=== PATIENT | male | born 1985 | race Caucasian/White ===

== ENCOUNTER 2019-03-27 06:34 | Outpatient (CLI) | payer BC, SELFPAY ==
--- NOTE | 2019-03-27 07:30 | NEURO_ITS ---
TEST: ELECTROENCEPHALOGRAM DIAGNOSIS: UNSPECIFIED CONVULSIONS PATIENT NUMBER: [id number] EEG NUMBER: [id number] RECORDING DATE: 03/27/19 CONDITION OF RECORDING: Awake, drowsy and sleep EEG DESCRIPTION: Basic resting occipital frequency consists moderate amount of well organized low to medium voltage 8-10hz alpha mixed with minimal amount of low voltage 15-18hz beta. During drowsiness low voltage beta activity is seen diffusely mixed with waxing and waning posterior alpha rhythms. Bilateral symmetrical sleep activity is seen during sleep. Regular EKG artifacts are noted. Bi-hemispheric sharp and slow wave transients are seen intermittently during wakefulness and drowsiness with questionable left hemispheric dominance. Photic stimulation produced normal drive. Hyperventilation produced normal and symmetrical build-up. Paroxysmal. Focal. Lateralizing. IMPRESSION: Abnormal record due to the presence of sharp and slow wave activity with possible left hemispheric dominance. These abnormalities are consistent with the diagnosis of seizure disorder. Clinical correlation recommended. [facility]
== END 2019-03-27 06:35 | disposition home or self-care (01) ==
PROVIDERS: PCP Family Medicine; Visit Provider Family Medicine
DX: R56.9 Unspecified convulsions (principal); R94.01 Abnormal electroencephalogram [EEG]
CPT/HCPCS: 95816

== ENCOUNTER 2019-06-02 10:28 | Outpatient (CLI) | payer BC, SELFPAY ==
--- NOTE | ~2019-06-02 | MR_ITS ---
EXAMINATION: MR brain/brain stem wo/w con EXAM DATE: 06/02/2019 11:41 INDICATION: Seizure. TECHNIQUE: Magnetic resonance imaging (MRI) of the brain/brain stem obtained without contrast. Sagit helen T1, axial diffusion, gradient echo (T2*), T1, T2, FLAIR sequences obtained. Seizure protocol was utilized including high-resolution coronal images through the hippocampi. Patient was then injecte d with 20 cc intravenous Multihance contrast. Axial and coronal postcontrast T1 weighted sequences ob tained. There is no prior study for comparison. FINDINGS: The hippocampi are symmetric and are without signal abnormality identified. There are no g ray matter heterotopias identified or evidence of cortical dysplasia. There are no areas of restrict ed diffusion to suggest acute infarction. There is no acute hemorrhage seen on the T2*, a hemosideri n sensitive sequence. No intraparenchymal brain mass. The ventricles are normal in size. There are no extra-axial collections. Flow voids are seen in the cerebral arteries on the T2-weighted sequence s consistent with their expected patency. The orbits are unremarkable. Soft tissue is unremarkable. There are no areas of abnormal enhancement on the postcontrast images. Mild to moderate mucoperios teal thickening. IMPRESSION: 1. No acute intracranial findings. 2. Mild to moderate ethmoid and maxillary mucoperiosteal thickening. Reviewed, dictated and finalized at location B.
[2019-06-02 11:02] LABS: Estimated Glomerular Filt Rate > 60
== END 2019-06-02 10:29 | disposition home or self-care (01) ==
PROVIDERS: PCP Family Medicine; Visit Provider Psychiatry & Neurology Neurology
DX: R56.9 Unspecified convulsions (principal)
CPT/HCPCS: 36415; 70553; A9577

== ENCOUNTER → 2020-12-17 07:32 | Outpatient (CLI) | payer BC, SELFPAY ==
--- NOTE | ~2020-12-17 | US_ITS ---
US abdomen limited DATE: 12/17/2020 07:55 INDICATION: Epigastric abdominal pain TECHNIQUE: Real-time imaging of liver, pancreas, gallbladder COMPARISON: None FINDINGS: There is hepatic steatosis. No hepatic or pancreatic space-occupying mass lesion is evident . Normal hepatopedal portal venous flow direction. There were multiple filling defects of the gallbladder with associated acoustical shadowing, consiste nt with cholelithiasis. No gallbladder wall thickening is noted. The common bile duct measures 5 mm, normal. Negative sonographic Lanza's sign with the patient reportedly is taking pain medication, which limit s the sensitivity of this time. IMPRESSION: Cholelithiasis Hepatic steatosis Reviewed, dictated and finalized at Location A. Reviewed, dictated and finalized at location A.
== END ==
PROVIDERS: Visit Provider Physician Assistant
DX: R10.13 Epigastric pain (principal); K80.20 Calculus of gallbladder without cholecystitis without obstruction; K76.0 Fatty (change of) liver, not elsewhere classified
CPT/HCPCS: 76705

== ENCOUNTER 2021-02-23 14:58 | Outpatient (CLI) | payer BC, SELFPAY ==
[2021-02-23 15:48] LABS: Alanine Aminotransferase 73 U/L (4-50); Albumin Level 4.4 g/dL (3.5-5.1); Alkaline Phosphatase 75 U/L (38-126); Amylase 67 U/L (30-110); Aspartate Amino Transferase 44 U/L (17-59); Bilirubin,Total 0.4 mg/dL (0.2-1.3); Lipase 54 U/L (23-300)
== END 2021-02-23 14:59 | disposition home or self-care (01) ==
LOC: ANHSURGERY 15:02
PROVIDERS: PCP Family Medicine; Visit Provider Surgery
DX: K80.20 Calculus of gallbladder without cholecystitis without obstruction (principal)
CPT/HCPCS: 36415; 80076; 82150; 83690; 86850; 86900; 86901

== ENCOUNTER → 2021-02-24 00:13 | Outpatient (CLI) | payer BC, SELFPAY ==
[2021-02-25 16:52] LABS: SARS-CoV-2 RNA PCR Negative
== END ==
PROVIDERS: PCP Family Medicine; Visit Provider Surgery
DX: Z01.812 Encounter for preprocedural laboratory examination (principal); Z20.822 Contact with and (suspected) exposure to COVID-19
CPT/HCPCS: C9803; U0003; U0005

== ENCOUNTER 2021-02-27 00:28 | Day surgery (SDC) | payer BC, SELFPAY ==
[2021-02-15 14:18] VITALS: BMI 35.6
--- NOTE | 2021-02-15 14:28 | PC.NURSE ---
Report to the Outpatient Waiting Room, entrance under the green pavilion located off [facility], at time 10:00 on date 02/27/21. OR Time: 12:00. - You and your visitor will be asked a series of questions to screen for COVID 19 for your protection. - A mask is required within the hospital. - Only one visitor is allowed at this time. Patient visitors will be guided where to wait when not with patient. Preoperative COVID Testing Requirements: No COVID Test needed if: (proof is required; if not received patient will have Rapid Test prior to entry) - Patient has received COVID Vaccine at least 14 days prior to procedure date or - Patient has positive COVID test result within last 90 days of surgery date. COVID Test needed if above criteria is not met If not COVID vaccinated a COVID test must be conducted within 72 hours of surgery and patient is asked to isolate self from time of testing until procedure. You will go to the [facility] for your COVID testing. The [facility] is located at the corner of [address] [facility]. COVID TEST 02/24 AT 9:10 You will only be called if COVID results are positive and your surgeon may reschedule your elective surgery date. Patients may have clear liquids (water, carbonated beverages, clear teas, apple juice) until 3 hours prior to surgery with a maximum of 20 ounces. - No food from midnight until time of surgery - Infants may have breast milk until 4 hours before surgery, infant formula 6 hours prior to surgery. - Children will be allowed to drink immediately following surgery. If applicable, please bring a bottle or sippy cup to assist with drinking. Juice, water, soda, and popsicles are readily available. For infants on formula, please bring formula the day of surgery. Pacifiers are allowed. Take the following medications with a SIP of water the morning of surgery: LAMOTRIGINE Medications to discontinue per physician: N/A Date to take last dose: N/A Please no make-up, nail urdu, hairspray, perfume, deodorant, or body powder the day of surgery. No jewelry (including any body piercings) or valuables the day of surgery, leave them at home. Please take a shower or bath the night before, or the morning of, surgery with an antibacterial soap. Wear comfortable, loose fitting clothing. HIBICLENS SHOWER - Jewelry must be removed prior to entering the operating room. Rings and piercings that are not removed may be cut off. - The hospital will not accept responsibility for valuables. - Please leave all valuables, including medications, at home the day of surgery. If you are going home after surgery, a licensed corporate driver must drive you home. - NO public transportation without another adult. - We recommend that an adult stay with you for 24 hours following discharge. - We also recommend that you do not drive, make important decision, drink alcoholic beverages, or take any drugs that were not prescribed by your health care provider for at least 24 hours after your discharge time. For Pediatric surgeries, we recommend two adults accompany the child home (only one inside the building at this time). Follow any additional instructions given to you from your surgeon. Telephone instructions given to LORENZO KENT and asked if any additional questions and then verbalized understanding. Patient advised to call surgeon office or pre surgery nurse liaison [phone] if any additional questions.
[2021-02-27] VITALS (10 sets, daily range): BP systolic 109–140; BP diastolic 61–83; PULSE 55–79; RESP 12–20; TEMP 36.5–36.8; O2SAT 93–100
[2021-02-27] MEDS: ACETAMINOPHEN 500 MG TABLET 1000 MG PO (10:24)
--- NOTE | 2021-02-27 10:25 | WPDANESEPPF ---
Anes - Initial Pre Proc Eval Procedure: Operation Date: 02/27/21 12:00 Proposed Procedures p Laparoscopic Cholecystectomy, Possible Open - Franklin Galvan DO Date/Time: 02/27/21 10:25 Surgeon: Franklin Galvan DO Pre Op Diagnosis: symptomatic cholelithiasis Patient Data Age: 35 Gender: M Height: 1.85 m Weight: 122.47 kg Allergies Allergy/AdvReac Type Severity Reaction Status Date / Time No Known Allergies Allergy Verified 02/27/21 10:22 Home Medications Medication Instructions Recorded Confirmed Type lamotrigine 25 mg tablet 100 mg PO BID tablet 07/27/20 02/27/21 History Patient hx anesthesia problems: post op nausea/vomiting Family hx anesthesia problems: none Results Review: All pre-operative results and documents have been reviewed as part of the pre-operative evaluation. [facility] Past Medical History Medical History Exposure to hazardous chemical Intolerance to BiPAP/CPAP Seizure Seizure disorder Surgical History Surgical History History of sinus surgery Hx of LASIK Social History Social History Smoking status: Never smoker Second hand tobacco smoke exposure: No Alcohol intake: current Drinks per week: 2 Alcohol use details: socially Substance use: never Substance use type: does not use Living arrangements: with family Gender identity (if verbalized by the patient): Male Spiritual care concerns: No Anes - Eval Final PreProcedure Day of Procedure 02/27/21 10:25 Patient weight: obese Heart: regular rate and rhythm Lungs: clear to auscultation Airway: Mallampati scale class II Neurological: alert and oriented Last oral intake: >/= 8 hours ASA classification: III Emergent: no Anesthetic plan: proceed Anesthesia type and monitoring: general ETT and standard monitoring Results Review: All pre-operative results and documents have been reviewed as part of the pre-operative evaluation. Informed Consent: The patient's anesthetic plan and its attendant risks and benefits were discussed with the patient/family/POA. Questions were solicited and answers provided to the satisfaction of the patient/family/POA.
[2021-02-27] MEDS: LACTATED RINGERS 1,000 ML 30 ML IV CONT ×2 (10:50→14:15)
[2021-02-27] MEDS: KETOROLAC 15 MG/ML VIAL (*BKC) IV PUSH (10:56)
--- NOTE | 2021-02-27 11:21 | WPDHPUPDATE1 ---
History and Physical Update Update Date/Time: 02/27/21 11:21 History and Physical has been reviewed, including an updated exam of the patient. There are NO changes in the patient's condition. Risks, benefits, and alternatives have been discussed and questions answered. Patient agrees to proceed with procedure.
[2021-02-27] MEDS: ceFAZolin 3 GM/D5W 100 ML 100 ML IVPB (11:37)
[2021-02-27] MEDS: BUPIVACAINE/EPINEPHRINE 0.5% 10 ML VIAL 30 ML INFILTRATE (12:03)
--- NOTE | 2021-02-27 12:19 | SUR.OPER ---
Ebl=5ml
--- NOTE | 2021-02-27 12:23 | W.PM.PROC2 ---
Procedure Note - Detailed Date of Procedure 02/27/21 Pre-op Diagnosis symptomatic cholelithiasis Post-op Diagnosis same Procedure Performed Laparoscopic Cholecystectomy Surgeon Franklin Galvan, DO Anesthesia general and local (0.5% bupivacaine) Indications This is a 35-year-old man who has been experiencing epigastric abdominal pain off and on for the past several months. He had an ultrasound that showed evidence of cholelithiasis. Discussions were made with the patient about treatment options and decision was made to proceed with laparoscopic cholecystectomy, possible open. Findings Laparoscopic cholecystectomy was performed. The gallbladder was somewhat dilated and had a few pericholecystic adhesions. The cystic duct appeared normal in size. No other abnormalities were noted. The gallbladder was removed and sent to the lab for pathology. Description of Procedure Procedure as well as risks, benefits, and alternatives were discussed with patient. Written consent was obtained and placed in chart prior to procedure. The patient was brought back to surgical suite. Patient was placed in supine position on operating table. Time-out was done to confirm patient and procedure. Patient was then intubated by the anesthesia department. Abdomen was prepped and draped in sterile fashion using chlorhexidine prep. 0.5% bupivacaine with epinephrine was infiltrated at each site of incision. A 5 millimeter incision was made near the umbilicus, and a 5 millimeter Optiview trocar was advanced through the abdominal layers under direct visualization. Once inside the abdominal cavity, carbon dioxide was insufflated to create a pneumoperitoneum. The camera was inserted and the abdomen was inspected. No immediate abnormalities were identified. The patient was placed in reverse Trendelenburg position and rotated slightly to the left. An 11 millimeter incision was made in the subxiphoid region, and an 11 millimeter trocar was inserted under direct visualization. Two 5 millimeter incisions were made in the right upper quadrant, and two 5 millimeter trocars were inserted under direct visualization. The gallbladder was identified and grasped at the fundus and retracted superiorly. It was then grasped at the infundibulum retracted laterally. Careful dissection around the neck of the gallbladder was performed using blunt dissection with a [place] grasper and hook electrocautery. The cystic duct was identified, and a window was created behind it. The cystic artery was also identified and a window was created behind it. The critical view of safety was identified, visualizing the cystic duct running directly into the neck of the gallbladder, and the cystic artery running directly into the wall of the gallbladder. A 5 millimeter clip airplane patroller was then used to place 2 clips proximally and 1 clip distally on both the cystic duct and cystic artery. They were then both transected using endoscopic scissors. Once safely away from the ely hepatitis, the gallbladder was dissected free from the liver bed using hook electrocautery. Hemostasis was achieved along the way. The gallbladder was removed completely and then removed through the subxiphoid port. The liver bed was then inspected. Hemostasis appeared adequate, and our clips appeared secure. The area was gently irrigated with sterile saline. No other abnormalities were seen. The patient was flattened out in bed, and 1 final inspection was made around the abdominal cavity. The subxiphoid port was removed, and a Scooter Nathanael cone was used to approximate the fascia with an 0-Vicryl simple interrupted suture. The remaining ports were then removed under direct visualization, the camera was removed, and the pneumoperitoneum was released. The skin of the incisions was approximated using 4-0 Monocryl subcuticular sutures. Exofin glue was applied on top. The patient was then awakened from anesthesia, extubated, and transferred to
[2021-02-27] MEDS: fentaNYL CITRATE INJ (*CRX) 100 MCG/2 ML VIAL 25 MCG IV PUSH ×6 (13:06→13:38)
[2021-02-27] MEDS: SCOPOLAMINE 1.5 MG PATCH TRANSDERM (13:06)
[2021-02-27] MEDS: diphenhydrAMINE HCl INJ 50 MG/ML VIAL 25 MG IV PUSH (14:49)
== END 2021-02-27 15:15 | disposition home or self-care (01) ==
PROVIDERS: PCP Family Medicine; Visit Provider Surgery
PROC: 0FT44ZZ Resection of Gallbladder, Percutaneous Endoscopic Approach (ICD-10-PCS; CPT 47562; principal; 2021-02-27 12:00)
DX: K80.10 Calculus of gallbladder with chronic cholecystitis without obstruction (principal); G40.909 Epilepsy, unspecified, not intractable, without status epilepticus; E66.9 Obesity, unspecified; Z68.37 Body mass index [BMI] 37.0-37.9, adult
CPT/HCPCS: 47562; 88304; A9270; J0690; J1100; J1170; J1200; J1885; J2405; J2710; J3010; J7030; J7120

== ENCOUNTER 2023-07-04 11:40 | Outpatient (CLI) | payer BC, SELFPAY ==
--- NOTE | ~2023-07-04 | XR_ITS ---
EXAMINATION: XR hip LT 2V w AP pelvis DATE: 07/04/2023 12:51 INDICATION: Left hip pain. TECHNIQUE: An anteroposterior view of the pelvis and 2 views of left hip were obtained. COMPARISON: None. FINDINGS: Alignment is normal. There is decreased left femoral head/neck offset anterolaterally, whic h may be seen with femoral acetabular impingement. The hip joint spaces are normal. IMPRESSION: 1. No arthritis. Reviewed, dictated and finalized at location A. IMPRESSION: 1. No arthritis.
== END 2023-07-04 11:41 ==
PROVIDERS: PCP Family Medicine; Visit Provider Family Medicine
DX: M25.552 Pain in left hip (principal)
CPT/HCPCS: 73502

== ENCOUNTER 2024-05-18 08:39 | Outpatient (CLI) | payer BC, SELFPAY ==
--- NOTE | ~2024-05-18 | XR_ITS ---
XR ankle LT 2V Ordering provider: Jesu Haney MD History: . M25.572 - Pain in left ankle and joints of left foot . Comparison: None. FINDINGS: BONES: No acute fracture or dislocation. Calcaneal spur. JOINT SPACES: The ankle mortise is normal. SOFT TISSUES: Normal. IMPRESSION: No acute osseous abnormality left ankle. Reviewed, dictated and finalized at location A.
== END 2024-05-18 08:40 | disposition home or self-care (01) ==
PROVIDERS: PCP Family Medicine; Visit Provider Family Medicine
DX: M25.572 Pain in left ankle and joints of left foot (principal)
CPT/HCPCS: 73600

== ENCOUNTER 2024-06-16 12:05 | Outpatient (CLI) | payer BC, SELFPAY ==
[2024-06-16 12:42] LABS: Basophils Percent Auto 0.4 % (0.2-1.2); Eosinophils Absolute Auto 0.6 K/mm3 (0-0.3); Eosinophils Percent Auto 7.2 % (0-4.4); Hematocrit 45.4 % (42.0-52.0); Hemoglobin 15.4 g/dL (14.0-18.0); Immature Granulocyte Absolute 0.02 K/mm3 (0.00-0.031); Immature Granulocyte Percent A 0.3 % (0-0.5); Mean Corpuscular HGB Conc 33.9 g/dl (32-36); Mean Corpuscular Hemoglobin 30.1 pg (26-34); Mean Corpuscular Volume 88.8 fl (80-100); Mean Platelet Volume 10.7 fl (7.4-10.4); Monocytes Absolute Auto 0.6 K/mm3 (0.1-0.6); Monocytes Percent Auto 7.4 % (2.6-8.5); Neutrophils Absolute Auto 4.4 K/mm3 (1.3-6.7); Neutrophils Percent Auto 55.7 % (45.5-73.1); Platelet Count Result 259 k/mm3 (150-375); Red Blood Count 5.11 M/mm3 (4.6-6.20); Red Cell Distribution Width 12.4 % (11.5-14.5); White Blood Count 7.9 K/mm3 (4.5-10.0)
[2024-06-16 13:11] LABS: Alanine Aminotransferase 87 U/L (6-50); Albumin Level 4.8 g/dL (3.5-5.1); Alkaline Phosphatase 91 U/L (38-126); Amylase 78 U/L (30-110); Anion Gap 9 mmol/L (4-12); Aspartate Amino Transferase 40 U/L (17-59); Bilirubin,Total 0.6 mg/dL (0.2-1.3); Blood Urea Nitrogen 18 mg/dL (9-20); Calcium 9.1 mg/dL (8.4-10.2); Carbon Dioxide 24 mmol/L (22-30); Chloride 104 mmol/L (98-107); Estimated Glomerular Filt Rate > 60; Glucose 92 mg/dL (65-110); Lipase 77 U/L (23-300); Potassium 4.3 mmol/L (3.4-5.0); Sodium 137 mmol/L (137-145)
--- OUTSIDE RECORDS SUMMARY | 2024-06-16 13:56 | XMS_ITS | Clinical Summary ---
Author Organization [facility] Address [address] [place] [address] Care Team Providers Care Partition Making Machine Operator Name Role Phone Jesu Haney MD Primary Care Provider [phone] Source Comments [facility],non-owned Affiliates and Associated Physician Practices is amultiple site organization consisting of ambulatory clinics and hospital sitesin [place], [place], [place] and [place]. This disclosure is being madepursuant to the Care Everywhere program and may not contain all information available regarding this patient. Last updated 17.[facility] Allergies No known active allergies Medications * Be aware that medications may not be up to date on this document. Alwaysverify current medications with the patient. cetirizine (ZyrTEC Allergy) 10 MG gel capsule Take 1 (one) capsule by mouth once daily Active Fluticasone Propionate (Xhance) 93 MCG/ACT EXHU [place] into the nose 2 times daily Active Famotidine (PEPCID AC PO) Take by mouth as needed Active lamoTRIgine (LaMICtal) 100 MG tabletIndicatio ns:Focal Epilepsy Take 1 (one) tablet by mouth 2 times daily Reasons: Focal Epilepsy Active Social History Tobacco Use Types Packs/Day Years Used Date Smoking Tobacco: Never Smokeless Tobacco: Never Tobacco Cessation:Counseling Given: Not Answered Alcohol Use Standard Drinks/Week Comments Yes 0 (1 standard drink = 0.6 oz pur e alcohol) Sex and Gender Information Value Date Recorded Sex Assigned at Not on file Legal Sex Male 6:10 PM SCRUM MASTER Gender Identity Not on file Sexual Orientation Not on file Last Filed Vital Signs Vital Sign Reading Time Taken Comments Blood Pressure 108/58 03/15/2022 4:30 PM SCRUM MASTER Pulse 79 03/15/2022 3:41 PM SCRUM MASTER Temperature 36.9 C (98.4 F) 03/15/2022 3:40 PM SCRUM MASTER Respiratory Rate 16 03/15/2022 3:41 PM SCRUM MASTER Oxygen Saturation 98% 03/15/2022 4:32 PM SCRUM MASTER Inhaled Oxygen Concentration - - Weight 122.5 kg (270 lb 1 oz) 03/15/2022 8:25 AM SCRUM MASTER Height 185.4 cm (6' 1 ) 03/15/2022 8:25 AM SCRUM MASTER Body Mass Index 35.63 03/15/2022 8:25 AM SCRUM MASTER Plan of Treatment Health Maintenance Due Date Last Done Comments HIV SCREENING 2001 HEPATITIS C SCREENING 12/15/2004 DTAP/TDAP/TD VACCINES (1 - Tdap) 2005 HEPATITIS B VACCINE (1 of 3 - 19+ 3-dose series) 2005 COVID-19 VACCINE (1 - 2023-2 5 season) 2023 DEPRESSION SCREENING 02/26/2024 INFLUENZA VACCINE (Season Ended) 2024 ZOSTER VACCINE (1 of 2) 2036 HIB VACCINE Aged Out No longer eligi ble based on patient's age to complete this topic HPV VACCINE Aged Out No longer eligi ble based on patient's age to complete this topic MENINGOCOCCAL (Group B) VACC INE SHARED DECISION-MAKING Aged Out No longer eligibl e based on patient's age to complete this topic MENINGOCOCCAL GROUPS A/C/Y/W VACCINE Aged Out No longer eligible b ased on patient's age to complete this topic PNEUMOCOCCAL VACCINE Aged Out No long er eligible based on patient's age to complete this [place] [address] [place] [address] Care Teams Partition Making Machine Operator Relationship Specialty Start Date End Date Jesu Haney MD [address] [place] [address] PCP - General 03/02/21
--- OUTSIDE RECORDS SUMMARY | 2024-06-16 13:56 | XMS_ITS | Continuity of Care Document ---
Author Organization [facility]erg[facility] Address [address] [place] [address] Phone Care Team Providers Care Police Officer Crime Prevention Name Role Phone Baca OD, Vlad Unavailable Unavailable Procedures Procedure Date Eye Exam & Treatment Refraction Post-op Follow-up Visit Post-op Follow-up Visit Post-op Follow-up Visit Post-op Follow-up Visit Post-op Follow-up Visit Post-op Follow-up Visit Post-op Follow-up Visit Post-op Follow-up Visit Allegretto-Lasik Surgery Allegretto-Lasik Surgery Corneal Topography Refractive Evaluation Eye Exam & Treatment Refraction CL Replacement - Vistakon Disp W/BW Soft Tax - Medical SV Poly Carb Sph +/- 7.12 To +/- 20 D Se Frames Deluxe Tax - Medical CL Replacement - Vistak[employer] Disp W/BW Soft Tax - Medical Eye Exam & Treatment CL Replacement - Vistak[employer] Disp W/BW Soft Tax - Medical Advance Directives Directive Yes / No Effective Date File Name No Information Encounters Encounter Description Practice Location Reason(s) For Visit Diagnoses Date Provider Providers Copied on Encounter Located within [facility], [address] [place] [address] [address], [place], [place], [id number], [place] tel:[phone] SEC [facility] No Information May-2 5-201 0 Baca OD Vlad. [facility] [address] , [address], [place], [place], [facility], [place]. tel:[phone] Referring Provider: Vlad Baca OD A, [address], [place], [facility]. tel:[phone] [facility] Eye [facility], [address] [place] [address] [address], [place], [place], [id number], [place] tel:[phone] [facility] No Information Apr-0 9-200 9 Baca OD Vlad. [address] [place], [place] [address]ate [address], [address], [place], [facility], [place]. tel:[phone] Referring Provider: Vlad Baca OD A, [facility] [address], [place], [facility]. tel:[phone] Located within [facility], [address] [place] [address] [address], [place], [place], [id number], [place] tel:[phone] [facility] No Information Feb-0 5-200 9 Baca OD Vlad. [facility] [address], [address], [place], [facility], [place]. tel:[phone] Referring Provider: Vlad Baca OD A, [facility] [address], [place], [facility]. tel:[phone] [facility] Eye [facility], [address] [place] [address] [address], [place], [place], [id number], [place] tel:[phone] [facility] No Information Nov-0 7-200 8 Baca OD Vlad. [facility] [address], [address], [place], [facility], [place]. tel:[phone] Referring Provider: Vlad Baca OD A, [facility] [address], [place], [facility]. tel:[phone] [facility] Eye [facility], [address], [place], [place], [id number], tel:[phone] [facility] No Information Sep-2 9-200 8 Baca OD Vlad. [address] [place], [place] [address]ate [address] , [address], [place], [facility], . tel:[phone] Referring Provider: Vlad Baca OD A, [facility] [address], [place], [facility]. tel:[phone] [facility], [address], [place], [place], [address], tel:[phone] [facility] No Information Sep-0 1-200 8 Baca OD Vlad. [address] [place], [place] [address], [address], [place], [facility], [place]. tel:[phone] Referring Provider: Vlad Baca OD A, [facility] [address], [place], [facility]. tel:[phone] [facility], [address], [place], [place], [address], tel:[phone] [facility] No Information June-2 2-200 8 Baca OD Vlad. [facility] [address], [address], [place], [facility], [place]. tel:[phone] Referring Provider: Vlad Baca OD A, [facility] [address], [place], [facility]. tel:[phone] [facility], [address], [place], [place], [address], tel:[phone] [facility] No Information June-0 1-200 8 Baca OD Vlad. [facility] [address], [address], [place], [facility], [place]. tel:[phone] Referring Provider: Vlad Baca OD A, [address], [place], [address]. tel:[phone] [facility], [address] [place] [address] [address], [place], [place], [address], tel:[phone] [facility] No Information Apr-2 5-200 8 Baca OD Vlad. [address] , [address], [place], [facility], [place]. tel:[phone] Referring Provider: Vlad Baca OD A, [address], [place], [facility]. tel:[phone] [facility], [address] [place] [address] [address], [place], [place], [address], tel:[phone] SEC [facility] No Information Apr-2 4-200 8 Krishnasamy Lm. [facility] [address], [place], [facility], [place]. tel:[phone] Referring Provider: Vlad Baca OD A, [facility] [address], [place], [facility]. tel:[phone] [facility], [address] [place] [address] [address], [place], [place], [address], tel:[phone] SEC [facility] No Information Apr-1 2-200 8 [facility]. [address], [place], [address], . tel:[phone] Referring Provider: Vlad Baca OD A, [facility] [address], [place], [facility]. tel:[phone] [facility], [address] [place] [address] [address], [place], [place], [address], tel:[phone] [facility] No Information Apr-1 0-200 8 Baca OD Vlad. [address] , [address], [place], [facility], [place]. tel:[phone] [facility], [address] [place] [address] [address], [place], [place], [address], [place] tel:[phone] SEC [facility] No Information Mar-2 6-200 8 Baca OD Vlad. [address] [place] [address] , [address], [place], [address], . tel:[phone] [facility], [address] [place] [address] [address], [place], [place], [address], [place] tel:[phone] SEC [facility] No Information Sep-0 6-200 7 [facility]. [address] [facility] [place], [address], [place], [place], [address], . tel:[phone] Referring Provider: Vlad Baca OD A, [address] [place] [address] [address], [place], [facility]. tel:[phone] sulting Provider: Dante Estrada, [address] [place] [address]ate [facility], [place], [facility]. tel:[phone] [facility], [address] [place] [address] [address], [place], [place], [address], [place] tel:[phone] SEC [facility] No Information Sep-0 5-200 7 Baca OD Vlad. [address] [place] [address] , [address], [place], [address], [place]. tel:[phone] [facility], [address] [place] [address] [address], [place], [place], [address], [place] tel:[phone] [facility] [place] No Information Mar-1 4-200 7 Baca OD Vlad. [address] [place] [address] , [address], [place], [address], . tel:[phone] Family History Family Member Type Diagnosis Age At Onset No Information Payers Payer name Insurance type Covered republican ID Authoriza tion(s) No Information Social History Type Description Quantity Date Captured Comments Sex Male Smoking Status No Information Chief Complaint And Reason For Visit No Information Reason For Referral Reason For Referral No Information History Of Present Illness Encounter Date Complaint History Of Prese nt Illness No Information Functional Status Date Functional Assessmen t No Information Instructions Date Instruction Additional Infor mation No Information Assessments Type Assessment Date No Information Patient Care Teams Name Effective Dates (start - stop) Status Members No Information
--- OUTSIDE RECORDS SUMMARY | 2024-06-16 13:56 | XMS_ITS | Clinical Summary ---
Author Organization [facility] Address [address] [place] [address] Care Team Providers Care Instant Potato Processing Supervisor Name Role Phone Jesu Haney MD Primary Care Provider [phone] Allergies No known active allergies Medications lamoTRIgine (LAMICTAL) 150 MG tablet Take 1 tablet (150 mg total) by mouth 2 (two) times daily. Active BUDESONIDE, NASAL, NA by Nasal route daily. 4 times a week Active azelastine (ASTELIN) 0.1 % nasal spray 2 sprays by Nasal route 2 (two) times daily. 03/29/2022 Active Family History Medical History Relation Comments Hypertension Mother Relation Status Comments Mother Social History Tobacco Use Types Packs/Day Years Used Date Smoking Tobacco: Never Smokeless Tobacco: Never Alcohol Use Standard Drinks/Week Comments Not Currently 0 (1 standard drink = 0.6 oz pur e alcohol) social Sex and Gender Information Value Date Recorded Sex Assigned at Not on file Legal Sex Male 10:19 AM CDT Gender Identity Not on file Sexual Orientation Not on file Last Filed Vital Signs Vital Sign Reading Time Taken Comments Blood Pressure 101/72 07/05/2022 6:00 PM CDT Pulse 89 07/05/2022 6:00 PM CDT Temperature 36.8 C (98.2 F) 07/05/2022 6:00 PM CDT Respiratory Rate 18 07/05/2022 6:00 PM CDT Oxygen Saturation 94% 07/05/2022 6:00 PM CDT Inhaled Oxygen Concentration - - Weight 120.6 kg (265 lb 14 oz) 07/05/2022 11:10 AM CDT Height 185.4 cm (6' 1 ) 07/05/2022 11:10 AM CDT Body Mass Index 35.08 07/05/2022 11:10 AM CDT Plan of Treatment Health Maintenance Due Date Last Done Comments Annual Physical 1989 Hepatitis C 2004 Hepatitis B Vaccines (1 of 3 - 19+ 3-dose series) 2005 COVID-19 Vaccine (1 - 2023-2 5 season) 2023 DTaP, Tdap and Td Vaccines ( 2 - Td or Tdap) 01/30/2031 01/30/2021 HPV Vaccines Aged Out No longer eligi ble based on patient's age to complete this topic Meningococcal B Vaccine Aged Out No l onger eligible based on patient's age to complete this topic Meningococcal Vaccine Aged Out No rhiannon rojas eligible based on patient's age to complete this topic Pneumococcal Vaccine: Pediat rics (0 to 5 Years) and At-Risk Patients (6 to 49 Years) Aged Out No longer eligi ble based on patient's age to complete this topic RSV Immunizations Under 20 Months Aged Out No longer eligible based on patient's age to complete this topic Insurance Care Teams Instant Potato Processing Supervisor Relationship Specialty Start Date End Date Jesu Haney MD [address] [place] [address] PCP - General FAMILY PRACTICE 06/27/22
--- OUTSIDE RECORDS SUMMARY | 2024-06-16 13:56 | XMS_ITS | Continuity of Care Document ---
Author Organization [facility] Address [address] [place] [address] Phone Care Team Providers Care Glove Brusher Name Role Phone Jc Pereira MD Unavailable Unavailable Allergies, Adverse Reactions, Alerts Substance Reaction Status Criticality No Known Drug Allergies Active No I nformation Medications Medication Instructions Dosage Effective Dates (start - stop) Status Comments Flonase 50 mcg/actuation nasal spray,suspension inhale 1 spray by intranasal route every day in each nostril - Active Zyrtec 10 mg tablet take 1 tablet by ora l route every day 10 MG - Active Procedures Procedure Date Office/outpatient visit,est, low 2017 Global/Postop followup visit Global/Postop followup visit Office/outpatient visit,est, mod 2016 Office/outpatient visit,est, mod 2016 Injection, tendon origin/insertion Depo Medrol Methylprednisolone 40 MG inj Global/Postop followup visit Global/Postop followup visit Global/Postop followup visit [facility] [employer] Immobilizer Arthscpy elbow, debrid extensive 2016 Arthscpy elbow synovectomy, compl Office/outpatient visit,est, low 2016 MRI Upper extr joint, w/o contrast X-ray exam elbow, 3+ views Office/outpatient visit,new, low 2016 Advance Directives Directive Yes / No Effective Date File Name No Information Encounters Encounter Description Practice Location Reason(s) For Visit Diagnoses Date Provider Providers Copied on Encounter Office/outpat ient visit,[facility], [address] [place] [address], [id number], [phone] [facility] [employer] R ELBOW (chief complaint) Lateral epicondylitis, right elbow 8 Kelli Greene. [address] [place] [address], [id number] , [place]. tel: [phone] [facility], [address] [place] [address], [id number], [place] tel:[phone] [facility] [employer] r elbow (chief complaint) Lateral epicondylitis, right elbow 8 Kelli Greene. [address] [place] [address], [id number] , [place]. tel: [phone] [facility], [address] [place] [address], [id number], [place] [phone] [facility] [employer] r elbow (chief complaint) Lateral epicondylitis, right elbow 7 Kelli Greene. [address] [place] [address], [id number] , [place]. tel: [phone] Office/outpat ient visit,[facility], [facility], [address] [place] [address], [id number], [place] [phone] [facility] [employer] RIGHT ELBOW (chief complaint) Lateral epicondylitis, right elbow 7 Kelli Greene. [address] [place] [address], [id number] , [place]. tel: [phone] Office/outpat ient visit,[facility], [facility], [address] [place] [address], [id number], [place] [phone] [facility] [employer] r elbow (chief complaint) Lateral epicondylitis, right elbowOther sprain of left elbow, initial encounter Sep-2 7 Kelli Greene. [address] [facility] [place] [address], [place], [place], [id number] , [place]. tel: [phone] [facility], [address] [place] [address], [place], [place], [id number], [place] tel:[phone] [facility] [employer] R ELBOW (chief complaint) Lateral epicondylitis, right elbow Sep-0 7 Kelli Greene. [address] [facility] [place] [address], [place], [place], [id number] , [place]. tel: [phone] [facility], [address] [place] [address], [id number], [place] tel:[phone] [facility] [employer] r elbow (chief complaint) Lateral epicondylitis, right elbow Aug- 0 7 Kelli Greene. [address] [facility], [address], [id number] , [place]. tel: [phone] [facility], [facility], [id number], [place] tel:[phone] [facility] Building RIGHT ELBOW (chief complaint) Lateral epicondylitis, right elbow 7 Kelli Greene. [address] [facility], [address], [id number] , [place]. tel: [phone] [facility], [address], [id number], [place] tel:[phone] [facility] [employer] r elbow (chief complaint) Lateral epicondylitis, right elbow 7 Kelli Greene. [address] [place] [address], [address], [id number] , [place]. tel: [phone] [facility], [address] [place] [address], [id number], [place] tel:[phone] [facility] No Information 7 Kelli Greene. [address] [place] [address], [address], [place], [place], [id number] , [place]. tel:[phone] [facility], [address], [place], [place], [id number], [place] tel:[phone] [facility] Lateral epicondylitis, right elbowOther sprain of left elbow, initial encounter Apr-2 0-201 7 Kelli Greene. [address] [facility], [address], [place], [place], [id number] , [place]. tel:[phone] Office/outpat ient visit,[facility], [address] [facility] [address], [place], [place], [id number], [place] tel:[phone] [facility] Professional [facility] r elbow (chief complaint) Other sprain of left elbow, initial encounterPain in right elbowLateral epicondylitis, right elbow Apr-1 0- 7 Kelli Greene. [address] [facility], [address], [place], [place], [id number] , [place]. tel:[phone] [facility], [address], [place], [place], [id number], [place] tel:[phone] [facility] Pain in right elbow Apr-0 - 7 [facility]. [address] [facility], [address], [place], [place], [id number] , [place]. tel:[phone] Referring Provider: Jc Herrera, [address] [facility] [address], [place], [address] . tel:[phone] Office/outpat ient visit,[facility] [employer] [facility], [address], [place], [place], [id number], [place] tel:[phone] [facility] [employer] [place] [facility] r elbow (chief complaint) Pain in right elbowOther sprain of left elbow, initial encounter Apr-0 5-201 7 Kelli Greene. [address] [facility], [address], [place], [place], [address] , [place]. tel:[phone] Family History Family Member Type Diagnosis Age At Onset No Information Payers Payer name Insurance type Covered republican ID Vinh alcazar(s) [facility] [id number] Social History Type Description Quantity Date Captured Comments Alcohol Use Details Unknown Caffeine Use Details Unknown Tobacco Use Status No Information Smoking Status No Information Sex Male Chief Complaint And Reason For Visit From encounter dated '04/15/2017 13:10'. R ELBOW (chief complaint). Description: F/U EVALUATION Reason For Referral Reason For Referral No Information Plan Of Treatment Date Type Action Status Referral Ordered: MRI Upper extr joint, w/o contrast RT elbow Appointment date/timeframe: 05/30/2016 ordered Referral Ordered: X-ray exam elbow, 3+ views RT ordered History Of Present Illness Encounter Date Complaint History Of Prese nt Illness R ELBOW F/U EVALUATION r elbow doing well r elbow post op RIGHT ELBOW TEST RESULTS r elbow f/u right elbow R ELBOW F/U EVALUATION R ELBOW r elbow f/u right elbow RIGHT ELBOW F/U EVALUATION r elbow postp right elbo w r elbow test results R e lbow r elbow c/o severe right elbow pain Functional Status Date Functional Assessmen t No Information Instructions Date Instruction Additional Infor mation No Information Assessments Type Assessment Date No Information Patient Care Teams Name Effective Dates (start - stop) Status Members No Information
== END 2024-06-16 12:06 | disposition home or self-care (01) ==
LOC: ANHLAB 12:06
PROVIDERS: PCP Family Medicine; Visit Provider Physician Assistant
DX: R73.01 Impaired fasting glucose (principal); R10.13 Epigastric pain; R68.81 Early satiety; R11.0 Nausea
CPT/HCPCS: 36415; 80053; 82150; 83036; 83690; 85025

== ENCOUNTER 2024-06-22 12:53 | Outpatient (CLI) | payer BC, SELFPAY ==
--- NOTE | ~2024-06-22 | CT_ITS ---
EXAMINATION: CT abdomen w con DATE: 06/22/2024 13:18 INDICATION: Epigastric pain. Assess for pancreatitis. TECHNIQUE: Computed tomography (CT) of the abdomen was performed with 100 mL Omnipaque-350 intravenou s contrast. Automated exposure control and iterative reconstruction technique were employed. The dose -length product was 795.58 mGy-cm. COMPARISON: None FINDINGS: Lung bases are clear. Heart size is normal. No pericardial or pleural effusion. Focal hepatic steatos is at the ligamentum teres. 2.5 similar hyperdense lesion with suggestion of peripheral puddling of c ontrast at the caudal right hepatic lobe most suggestive of a hemangioma. Cholecystectomy clips the g allbladder fossa. Spleen, pancreas, left adrenal gland and bilateral kidneys are normal. 2.1 cm right adrenal mass with relatively low-attenuation for postcontrast imaging suggests but not diagnostic of adenoma. Visualized portion of the bowels are unremarkable. No pathologically enlarged abdominal or upper pelvic lymphadenopathy. Bones are unremarkable. IMPRESSION: 1. No acute intra-abdominal process including normal-appearing pancreas. 2. 2.1 cm right adrenal mass and 2.5 cm peripherally enhancing hepatic lesion with imaging features f or both suggestive but not diagnostic of adrenal adenoma and hepatic hemangioma respectively. Conside r further evaluation of both lesions with pre and postcontrast adrenal protocol MRI for definitive de termination. Reviewed, dictated and finalized at location B. IMPRESSION: 1. No acute intra-abdominal process including normal-appearing pancreas. 2. 2.1 cm right adrenal mass and 2.5 cm peripherally enhancing hepatic lesion w ith imaging features for both suggestive but not diagnostic of adrenal adenoma and hepatic hemangioma respectively. Consider further evaluation of both lesion s with pre and postcontrast adrenal protocol MRI for definitive determination.
== END 2024-06-22 12:54 | disposition home or self-care (01) ==
PROVIDERS: PCP Family Medicine; Visit Provider Physician Assistant
DX: R10.13 Epigastric pain (principal); R73.01 Impaired fasting glucose; R11.0 Nausea; R68.81 Early satiety; D35.01 Benign neoplasm of right adrenal gland
CPT/HCPCS: 74160; Q9967

== ENCOUNTER 2024-06-25 11:45 | Outpatient (CLI) | payer BC, SELFPAY ==
--- NOTE | ~2024-06-25 | MR_ITS ---
MRI of the abdomen: Clinical indication: Right adrenal mass, liver lesion. Technique: Coronal SSFSE ARC, WATER:coronal LAVA-FLEX, Coronal 2D FIESTA FatSat, Axial SSFSE BH ARC, Axial 3D DualEcho BH, Axial SSFSE-IR, Axial DWI b=500, Axial 2D FIESTA FatSat, pre and dynamic postco ntrast Axial LAVA ARC, postcontrast Coronal In and Opposed phase LAVA FLEX . Following intravenous ad ministration of 20 cc MultiHance gadolinium, T1-weighted fat-sat imaging was performed in the axial a nd coronal planes. Findings: Gallbladder is absent. The common bile duct is normal in course and caliber. No filling def ects are seen within the CBD. No evidence of intrahepatic biliary ductal dilatation. The pancreatic d uct is normal in size. There is diffuse signal loss in the liver on out of phase images relative to in phase images, compati ble diffuse fatty infiltration. There is a lobulated T2 hyperintense mass in the inferior right hepat ic lobe measuring up to 2.7 cm in maximum diameter. This lesion demonstrates discontinuous peripheral nodular enhancement with progressive fill in over time, compatible with typical hemangioma. There is a 2.0 cm nonenhancing T2 hyperintense simple cyst in the right adrenal gland. Spleen, pancreas, left adrenal gland, kidneys appear normal. The aorta and the paraaortic regions rocío ear normal. Impression: Diffuse fatty infiltration of liver. 2.7 cm inferior right hepatic lobe hemangioma. 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 Reviewed, dictated and finalized at [facility]. Impression: Diffuse fatty infiltration of liver. 2.7 cm inferior right hepatic lobe hemangioma. 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
== END 2024-06-25 11:46 | disposition home or self-care (01) ==
PROVIDERS: PCP Family Medicine; Visit Provider Physician Assistant
DX: E27.8 Other specified disorders of adrenal gland (principal); K76.9 Liver disease, unspecified; K76.0 Fatty (change of) liver, not elsewhere classified; D35.01 Benign neoplasm of right adrenal gland
CPT/HCPCS: 74183; A9577